=== PATIENT | female | born 1980 | race Caucasian/White ===

== ENCOUNTER 2017-05-25 17:32 | Emergency (ER) | payer OTHER ==
[2017-05-25] MEDS: predniSONE 20 MG TAB PO (18:25)
[2017-05-25] MEDS: IBUPROFEN 600 MG TAB PO (18:25)
== END 2017-05-25 19:00 | disposition home or self-care (01) ==
LOC: FTE 17:32
DX: J45.909 Unspecified asthma, uncomplicated (principal); I10 Essential (primary) hypertension
CPT/HCPCS: 81025; 99284

== ENCOUNTER 2017-09-09 17:49 | Emergency (ER) | payer OTHER | END 2017-09-09 20:38 | disposition home or self-care (01) | LOC: FTE 17:49 | DX: H66.92 Otitis media, unspecified, left ear (principal); R30.0 Dysuria; I10 Essential (primary) hypertension | CPT/HCPCS: 99283; Z7502 ==

== ENCOUNTER 2018-04-07 10:03 | Emergency (ER) | payer OTHER | END 2018-04-07 11:53 | disposition home or self-care (01) | LOC: FTE 10:03 | DX: M54.5 Low back pain (principal); I10 Essential (primary) hypertension | CPT/HCPCS: 99283; Z7502 ==